=== PATIENT | female | born 1960 | race Caucasian/White ===

== ENCOUNTER 2018-12-14 06:40 | Day surgery (SDC) | payer OTHER ==
[2018-12-14] MEDS ORDERED: PROPOFOL 10 MG/ML VIAL IV ONE (06:41)
[2018-12-14] MEDS ORDERED: LIDOCAINE 2% MDV (20MG/ML) 20ML VIAL IV ONE (06:41)
--- NOTE | 2018-12-17 10:51 | Operative Note ---
SURGEON: Jamie Jimenez MD OPERATION: COLONOSCOPY. INDICATIONS: This is a 58-year-old female who presented for first screening colonoscopy. POSTOPERATIVE DIAGNOSES: 1. A 3 mm ascending colon polyp that was removed by cold biopsy forceps with an adjacent 6 mm sessile polyp that was removed by cold snare. 2. A 6 mm sessile polyp in the sigmoid colon that was removed by cold snare. 3. An 8 mm sessile polyp in the rectum that was removed by cold snare. 4. A linear rectal ulcer that was biopsied and sigmoid diverticulosis. ANESTHESIA: Sedation is per Anesthesia. Pulse oximetry was monitored throughout the procedure to maintain O2 saturation of 90% or greater. Supplemental oxygen was administered via nasal cannula. Cardiac and vital signs were monitored throughout the duration of the procedure, and they were stable. The procedure of colonoscopy and risks and alternatives of the procedure, including the risk of bleeding and perforation, among others, were explained to the patient who voiced understanding and agreed to have the procedure done. Physical examination was performed, and the patient was found stable for sedation. PROCEDURE: The patient was placed in the left lateral position. Sedation was initiated. A digital rectal exam was performed and showed some mild external hemorrhoids with no palpable rectal masses. An Olympus PCF-180AL colonoscope was then inserted into the rectum under direct visualization. It was advanced to the cecum without difficulty. The ileocecal valve and appendiceal orifice were identified and photographed. The colonic mucosa was carefully examined upon introduction of the colonoscope. There were scattered diverticula noted in the sigmoid and descending colon. The ileocecal valve was intubated and terminal ileal mucosa was inspected for about 10 cm and it appeared normal. The colonoscope was then withdrawn while carefully examining the colonic mucosal surfaces. The cecum was normal. In the ascending colon was a 3 mm sessile polyp that was noted and was removed by cold biopsy forceps. There was an adjacent 6 mm sessile polyp that was removed by cold snare. The rest of the ascending colon, transverse colon, and descending colon appeared normal. In the sigmoid colon was a 6 mm sessile polyp that was noted and was removed by cold snare. In the rectum was an 8 mm sessile polyp that was noted and was removed by cold snare. There was a linear ulceration in the rectal vault that was biopsied. Retroflexion revealed no other lesions. The colonoscope was then withdrawn and the procedure was terminated. The patient tolerated the procedure well without any immediate complications. The patient remained with stable vital signs and was transferred to the recovery room. RECOMMENDATIONS: 1. The patient should be on a high-fiber diet. 2. The patient is to have a repeat colonoscopy for surveillance in 3 years. Thank you for allowing me to participate in the care of your patient. ROD
== END 2018-12-14 08:24 | disposition home or self-care (01) ==
LOC: HOP 06:40
PROVIDERS: ATTEND Internal Medicine Gastroenterology
DX: Z12.11 Encounter for screening for malignant neoplasm of colon (principal); D12.2 Benign neoplasm of ascending colon; D12.5 Benign neoplasm of sigmoid colon; D12.8 Benign neoplasm of rectum; K57.30 Diverticulosis of large intestine without perforation or abscess without bleeding; K62.6 Ulcer of anus and rectum